=== PATIENT | female | born 1940 | race Caucasian/White ===

== ENCOUNTER 2020-07-10 17:41 | Emergency (ER) | payer MEDICARE, OTHER, SELFPAY ==
--- NOTE | ~2020-07-10 | XR_ITS ---
XR ankle LT min 3V DATE: 07/10/2020 18:27 INDICATION: Fall. Medial and lateral ankle pain and swelling TECHNIQUE: 4 views COMPARISON: None FINDINGS: There is a linear oblique fracture through the distal fibular diametaphysis with approximat swathi 2.8 mm lateral displacement. There is minimal lateral subluxation suggested at the tibiotalar jose nt. The medial malleolus is intact. There is a small nondisplaced corner fracture of the posterior malleolus. There is generalized soft tissue swelling of the ankle. IMPRESSION: Lateral and posterior malleolar fractures and minimal lateral subluxation at the tibiotal ar joint Generalized soft tissue swelling Reviewed, dictated and finalized at location A. IMPRESSION: Lateral and posterior malleolar fractures and minimal lateral sublu xation at the tibiotalar joint Generalized soft tissue swelling
--- NOTE | 2020-07-10 17:53 | ED.LOWEXIN ---
HPI - Extremity Injury (Lower) General Chief Complaint: Extremity Injury, Lower Stated Complaint: left fibula fx, confirmed per Dr. Castillo Time Seen by Provider: 07/10/20 17:45 Source: patient Mode of arrival: ambulatory Limitations: no limitations History of Present Illness HPI Narrative: Patient is an 80-year-old female who presents per private vehicle for evaluation of left leg injury that occurred today after tripping and twisting the leg while attempting to get into the vehicle prior to arrival orthopedic surgery called noting that the patient would be coming would like imaging and splinting and for patient to follow in clinic. Patient denies other injuries or complaints and on arrival is in no distress. Related Data Allergies Allergy/AdvReac Type Severity Reaction Status Date / Time Sulfa (Sulfonamide Allergy Itching Verified 07/10/20 18:10 Antibiotics) erythromycin base AdvReac Other Verified 07/10/20 18:10 [From Staticin] ethyl alcohol [From Staticin] AdvReac Other Verified 07/10/20 18:10 Review of Systems Review of Systems: All systems reviewed & are unremarkable except as noted in HPI and below PMFSH Past Medical History Medical History (Updated 07/10/20 @ 18:29 by Shekhar Desai PA-C) Arthritis Atrial fibrillation Social History Social History (Updated 07/10/20 @ 17:59 by Shekhar Desai PA-C) Smoking status: Never smoker Exam Narrative: Exam Narrative: GENERAL: Well-appearing, well-nourished, and in no acute distress. HEAD: Normocephalic, atraumatic. EYES: PERRLA and EOMI. ENT: Nares clear, no rhinorrhea or epistaxis. Mucous membranes moist. CHEST: Clear to auscultation. No respiratory distress. No wheezes rales or rhonchi HEART: Regular rate and rhythm. No murmur heard. Normal peripheral pulses. EXTREMITIES: Swelling and tenderness of the left ankle joint remainder of extremity nontender. No cervical spine tenderness SKIN: Warm, dry, no rash. NEURO: No focal deficits. Alert and oriented x3. Neurovascularly intact PSYCH: Normal mood and affect. Course Consultations Consultation #1: Discussed case with orthopedic surgery who will follow patient in clinic Date: 07/10/20 Time: 18:00 Vital Signs Vital signs: Vital Signs Temperature 98.0 F 07/10/20 18:05 Pulse Rate 74 07/10/20 18:05 Respiratory Rate 20 07/10/20 18:05 Blood Pressure 142/64 H 07/10/20 18:05 Pulse Oximetry 97 07/10/20 18:05 Temperature 98.0 F 07/10/20 18:05 Pulse Rate 74 07/10/20 18:05 Respiratory Rate 20 07/10/20 18:05 Blood Pressure 142/64 H 07/10/20 18:05 Pulse Oximetry 97 07/10/20 18:05 MDM - Extremity Injury (Lower) MDM Narrative Medical decision making narrative: Patients injury or pain is consistent with musculoskeletal etiology. No signs of neurological or vascular compromise on exam. Compartments and tisues are soft without signs of compartment syndrome. Pain is felt appropriate for further evaluation on an outpatient basis. Discharge Plan Discharge Clinical Impression: Closed fracture of ankle Patient Disposition: Home, Self-Care Condition: Stable Instructions: Antibiotic Form, Ankle Fracture (DC) Additional Instructions: Wear splint and use walker with no weight on the affected leg Ice and elevate extremity. Pain medication as needed and directed. Follow-up with orthopedic surgery first thing tomorrow to set up for reevaluation. Return if symptoms worsen or concerns or any increase in redness swelling pain or fever over 100.5 or any loss of feeling or function in the extremity Prescriptions: New acetaminophen [Tylenol Arthritis Pain] 650 mg tablet extended release 650 mg PO Q8H PRN (Reason: pain) Qty: 10 RF: 0 Follow-up/Referrals: PHYSICIAN NOT ON STAFF,NONSTAFF [Primary Care Provider] - Jaret Castillo MD [Physician] -
[2020-07-10 18:05] VITALS: BP 142/64; PULSE 74; RESP 20; TEMP 36.7; O2SAT 97
[2020-07-10] MEDS: ACETAMINOPHEN 500 MG TABLET 1000 MG PO (18:12)
[2020-07-10 19:28] VITALS: BP 135/80; PULSE 70; RESP 20; O2SAT 99
== END 2020-07-10 19:30 | disposition home or self-care (01) ==
PROVIDERS: Emergency Provider Emergency Medicine
DX: S82.62XA Displaced fracture of lateral malleolus of left fibula, initial encounter for closed fracture (principal); M19.90 Unspecified osteoarthritis, unspecified site; I48.91 Unspecified atrial fibrillation; W18.40XA Slipping, tripping and stumbling without falling, unspecified, initial encounter; X50.9XXA Other and unspecified overexertion or strenuous movements or postures, initial encounter
CPT/HCPCS: 29515; 73610; 99284; A9270